=== PATIENT | female | born 1955 | race Caucasian/White ===

== ENCOUNTER 2024-07-16 03:18 | Emergency (ER) | payer MEDICARE ==
[~2024-07-16] VITALS: Ht 154.9 cm; Wt 76.0 kg
[2024-07-16] VITALS (8 sets, daily range): BP systolic 143–198; BP diastolic 81–112
[2024-07-16] MEDS ORDERED: ISOSORB MONO30 MG PO (03:32)
[2024-07-16] MEDS ORDERED: BISOPROLOL FUMARATE/ PO (03:33)
[2024-07-16] MEDS ORDERED: LOSARTAN POTASS50 MG PO (03:33)
[2024-07-16] MEDS ORDERED: LEVOTHYROXIN25 MC1 PO (03:34)
[2024-07-16] MEDS ORDERED: PRAVASTATIN20 MG PO (03:34)
[2024-07-16] MEDS ORDERED: cloNIDine HCL 0.1 MG/TAB PO ONE (03:55)
[2024-07-16 05:00] LABS: URINE BILIRUBIN - DIPSTICK Negative (NEGATIVE); URINE BLOOD DIPSTICK Trace-intact (NEGATIVE); URINE GLUCOSE - DIPSTICK 100 mg/dL (NEGATIVE); URINE KETONE Negative (NEGATIVE); URINE LEUK ESTERASE Negative (NEGATIVE); URINE NITRITE - DIPSTICK Negative (Negative); URINE PROTEIN - DIPSTICK >=300 mg/dL (NEG-TRACE); URINE SPECIFIC GRAVITY 1.025
[2024-07-16 05:08] LABS: URINE COLOR Yellow
[2024-07-16 05:23] LABS: BASO% 0.2 % (0-3); HEMATOCRIT 30.9 % (37.0-47.0); HEMOGLOBIN 10.5 g/dl (12.0-16.0); LYMPH% 9.6 % (15-41); MEAN CELL VOLUME 95.1 fL CALC (80.0-100.0); MEAN CORPUSCULAR HGB 32.3 pG CALC (26.0-32.0); MONO% 3.4 % (2-13); NEUT# 5.12 thou/uL (2.00-7.15); NEUT% 85.8 % (42-76); RED BLOOD COUNT 3.25 mill/uL (4.20-5.60); RED CELL DISTRI WIDTH 14.9 % (11.5-15.5)
[2024-07-16 05:25] LABS: URINE BACTERIA MODERATE hpf; URINE EPITHELIAL CELLS FEW EPI/hpf (0-FEW)
[2024-07-16 05:45] LABS: ALBUMIN 3.9 g/dL (3.2-5.0); BILIRUBIN, TOTAL 0.7 mg/dL (0.02-1.3); CREATININE 0.6 mg/dL (0.5-1.0); POTASSIUM 3.8 mmol/l (3.5-5.1); TOTAL PROTEIN 6.8 g/dL (6.3-8.2)
== END 2024-07-16 06:44 | disposition home or self-care (01) ==
LOC: ED 03:18
PROVIDERS: Family Medicine
DX: I10 Essential (primary) hypertension (principal); C56.9 Malignant neoplasm of unspecified ovary; E03.9 Hypothyroidism, unspecified; Z79.52 Long term (current) use of systemic steroids; Z79.60 Long term (current) use of unspecified immunomodulators and immunosuppressants

== ENCOUNTER 2024-07-18 23:15 | Emergency (ER) | payer MEDICARE ==
[~2024-07-18] VITALS: Ht 154.9 cm; Wt 76.0 kg
[~2024-07-18 23:15] MED LIST: BISOPROLOL FUMARATE/ PO; ISOSORB MONO30 MG PO; LEVOTHYROXIN25 MC1 PO; LOSARTAN POTASS50 MG PO; PRAVASTATIN20 MG PO
[2024-07-18] MEDS ORDERED: cloNIDine HCL 0.1 MG/TAB PO ONE (23:55)
[2024-07-18] MEDS ORDERED: LOSARTAN POTAS100 MG PO (23:59)
[2024-07-18] MEDS ORDERED: BISOPRL/HC5 MG/6.25 PO (23:59)
[2024-07-18] MEDS ORDERED: CLONIDINE0.1 MG PO (23:59)
[2024-07-19] VITALS (9 sets, daily range): BP systolic 94–209; BP diastolic 61–114
== END 2024-07-19 01:49 | disposition home or self-care (01) ==
LOC: ED 23:15
DX: I10 Essential (primary) hypertension (principal); E03.9 Hypothyroidism, unspecified; K21.9 Gastro-esophageal reflux disease without esophagitis